=== PATIENT | male | born 1965 | race Asian ===

== ENCOUNTER 2021-09-23 00:41 | Day surgery (SDC) | payer OTHER, SELFPAY ==
[2021-09-09 08:22] VITALS: BMI 32.5
--- NOTE | 2021-09-22 12:31 | PM.HPGS ---
History of Present Illness History of Present Illness Consent: Risks, benefits, and alternatives have been discussed and questions answered. Patient agrees to proceed with procedure. Chief complaint: GERD, neoplasm screening Narrative: Maciej Ricketts is a 55 year old male was had a great deal of difficulty with indigestion, burning particularly after meals in the upper abdomen. He has been using Pepcid p.r.n.. He has of pain just underneath the ribs to the right of the epigastric area. It comes and goes and seems to be more commonly there if he drinks soda or alcohol. There has been no weight loss or vomiting. He has been taking pantoprazole on an off but is not sure that it is helping. At 1 time he had had hematemesis and had endoscopy somewhere, But nothing was found. He is due for colon cancer screening . Review of Systems Review of Systems: All systems reviewed & are unremarkable except as noted in HPI and below PMFSH Past Medical History Medical History IBS (irritable bowel syndrome) Ulcer Social History Social History Smoking packs per day: 1.5 Smoking cigarettes per day: 30.0 Years smoked: 20 Smoking pack-years: 30.00 Smoking status: Former smoker Tobacco type: cigarettes Alcohol intake: former Alcohol use details: quit drinking 01/2021 6 shots/night Substance use: never Substance use type: does not use Other substance usage details: vapes CBD Living arrangements: alone Gender identity (if verbalized by the patient): Male Sexual Orientation (if Verbalized by the Patient): Straight or Heterosexual Spiritual care concerns: No Meds Home Medications and Allergies Home Medications Medication Instructions Recorded Confirmed Type tamsulosin 0.4 mg capsule 0.4 mg PO DAILY #90 cap 08/23/21 09/23/21 Rx multivit with min-folic acid 1 tablet PO DAILY 09/09/21 09/23/21 History [Adult One Daily Multivitamin] naproxen sodium [Aleve] 220 mg PO PRN PRN 09/09/21 09/23/21 History pantoprazole 40 mg PO DAILY 09/09/21 09/23/21 History methylphenidate HCl 27 mg 27 mg PO QAM #30 tablet 09/22/21 Rx tablet,extended release 24 hr sildenafil 25 mg tablet 25 mg PO DAILY PRN #30 tablet 09/22/21 Rx Allergies Allergy/AdvReac Type Severity Reaction Status Date / Time No Known Allergies Allergy Unknown Verified 09/23/21 07:43 Exam Const: General: alert Orientation/consciousness: patient oriented x3 Resp: Auscultation: clear to auscultation bilaterally Cardio: Rhythm: regular rhythm GI: GI Palp: Yes Soft to palpation and No Tenderness to palpation present (GI) Neuro: General: patient oriented x3 Assessment and Plan Assessment and plan (1) Gastroesophageal reflux disease: Qualifiers: Esophagitis presence: without esophagitis Qualified Code(s): K21.9 - Gastro-esophageal reflux disease without esophagitis Code(s): K21.9 - Gastro-esophageal reflux disease without esophagitis Status: Inactive Assessment and Plan: EGD with possible biopsy or dilatation or cautery. (2) Colon cancer screening: Code(s): Z12.11 - Encounter for screening for malignant neoplasm of colon Status: Acute Assessment and Plan: Colonoscopy with possible biopsy or polypectomy or cautery or injection of substances.
[2021-09-23 07:45] VITALS: BP 124/77; PULSE 80; RESP 16; TEMP 36.1; O2SAT 98
[2021-09-23] MEDS: LACTATED RINGERS 1,000 ML 150 ML IV CONT (07:52)
--- NOTE | 2021-09-23 08:13 | WPDANESEPPF ---
Anes - Initial Pre Proc Eval Procedure: Operation Date: 09/23/21 08:30 Proposed Procedures p Esophagogastroduodenoscopy & Screening Colonoscopy - Sherif Holcomb MD Date/Time: 09/23/21 08:13 Surgeon: Sherif Holcomb MD Pre Op Diagnosis: GERD, neoplasm screening Patient Data Age: 55 Gender: M Height: 1.73 m Weight: 95.9 kg Last Vital Signs Temp 36.1 C L 09/23/21 07:45 Pulse 80 09/23/21 07:45 Resp 16 09/23/21 07:45 BP 124/77 09/23/21 07:45 Pulse Ox 98 09/23/21 07:45 Allergies Allergy/AdvReac Type Severity Reaction Status Date / Time No Known Allergies Allergy Unknown Verified 09/23/21 07:43 Home Medications Medication Instructions Recorded Confirmed Type tamsulosin 0.4 mg capsule 0.4 mg PO DAILY #90 cap 08/23/21 09/23/21 Rx multivit with min-folic acid 1 tablet PO DAILY 09/09/21 09/23/21 History [Adult One Daily Multivitamin] naproxen sodium [Aleve] 220 mg PO PRN PRN 09/09/21 09/23/21 History pantoprazole 40 mg PO DAILY 09/09/21 09/23/21 History methylphenidate HCl 27 mg 27 mg PO QAM #30 tablet 09/22/21 Rx tablet,extended release 24 hr sildenafil 25 mg tablet 25 mg PO DAILY PRN #30 tablet 09/22/21 Rx Patient hx anesthesia problems: none Family hx anesthesia problems: none Results Review: All pre-operative results and documents have been reviewed as part of the pre-operative evaluation. [facility] Past Medical History Medical History ADHD Gastroesophageal reflux disease IBS (irritable bowel syndrome) Ulcer Social History Social History Smoking packs per day: 1.5 Smoking cigarettes per day: 30.0 Years smoked: 20 Smoking pack-years: 30.00 Smoking status: Former smoker Tobacco type: cigarettes Alcohol intake: former Alcohol use details: quit drinking 01/2021 6 shots/night Substance use: never Substance use type: does not use Other substance usage details: vapes CBD Living arrangements: alone Gender identity (if verbalized by the patient): Male Sexual Orientation (if Verbalized by the Patient): Straight or Heterosexual Spiritual care concerns: No Anes - Eval Final PreProcedure Day of Procedure 09/23/21 08:13 Patient weight: obese Heart: regular rate and rhythm Lungs: clear to auscultation Airway: Mallampati scale class II Neurological: alert and oriented Last oral intake: >/= 8 hours ASA classification: III Emergent: no Anesthetic plan: proceed Anesthesia type and monitoring: general GIVS and standard monitoring Results Review: All pre-operative results and documents have been reviewed as part of the pre-operative evaluation. Informed Consent: The patient's anesthetic plan and its attendant risks and benefits were discussed with the patient/family/POA. Questions were solicited and answers provided to the satisfaction of the patient/family/POA.
[2021-09-23] MEDS: BENZOCAINE (*SP) 60 ML SPRAY CAN (HURRICAINE) 1 SPRAY MUCOUS MEM (08:43)
--- NOTE | 2021-09-23 08:50 | SUR.OPER ---
egd ended at 0850. colonoscopy start time 0857.
[2021-09-23 09:13] VITALS: BP 121/66; PULSE 85; RESP 24; O2SAT 98
[2021-09-23 09:23] VITALS: BP 104/70; PULSE 84; RESP 26; O2SAT 95
[2021-09-23 09:33] VITALS: BP 121/66; PULSE 85; RESP 24; O2SAT 96
== END 2021-09-23 10:05 | disposition home or self-care (01) ==
PROVIDERS: PCP Family Medicine; Visit Provider Internal Medicine Gastroenterology
PROC: 0DJ08ZZ Inspection of Upper Intestinal Tract, Via Natural or Artificial Opening Endoscopic (ICD-10-PCS; CPT 43235; principal; 2021-09-23 08:30)
DX: Z12.11 Encounter for screening for malignant neoplasm of colon (principal); K22.70 Barrett's esophagus without dysplasia; K21.00 Gastro-esophageal reflux disease with esophagitis, without bleeding; K58.9 Irritable bowel syndrome, unspecified; Z87.891 Personal history of nicotine dependence
CPT/HCPCS: 45378; 43239; 87081; 88305; J2704; J7120